=== PATIENT | male | born 1965 | race Caucasian/White ===

== ENCOUNTER 2018-03-29 08:52 | Emergency (ER) | payer OTHER ==
[~2018-03-29] VITALS: Ht 182.9 cm; Wt 106.2 kg
[~2018-03-29 08:52] MED LIST: HYDR-3533 PO
[2018-03-29 08:54] VITALS: BP 140/79; PULSE 71; RESP 18; TEMP 98.6; O2SAT 98
[2018-03-29 09:12] VITALS: O2SAT 98
[2018-03-29 09:30] LABS: AUTOMATED NEUTROPHIL # 4.2 TH/MM3 (1.8-7.7); BASOPHIL # 0.1 TH/MM3 (0-0.2); EOSINOPHIL # 0.3 TH/MM3 (0-0.4); EOSINOPHIL % 4.7 % (0.0-4.0); HEMATOCRIT 43.7 % (39.0-51.0); HEMOGLOBIN 14.6 GM/DL (13.0-17.0); LYMPH % 30.7 % (9.0-44.0); LYMPHOCYTE # 2.2 TH/MM3 (1.0-4.8); MEAN CELL VOLUME 80.2 FL (80.0-100.0); MEAN CORPUSCULAR HEMOGLOBIN 26.9 PG (27.0-34.0); MEAN CORPUSCULAR HGB CONC 33.5 % (32.0-36.0); MEAN PLATELET VOLUME 7.7 FL (7.0-11.0); MONO % 5.8 % (0.0-8.0); MONOCYTE # 0.4 TH/MM3 (0-0.9); NEUT % 57.8 % (16.0-70.0); PLATELET COUNT 265 TH/MM3 (150-450); RED BLOOD COUNT 5.44 MIL/MM3 (4.50-5.90); RED CELL DISTRIBUTION WIDTH 13.4 % (11.6-17.2); WHITE BLOOD COUNT 7.2 TH/MM3 (4.0-11.0)
[2018-03-29] MEDS ORDERED: SODIUM CHLORIDE 0.9% FLUSH 10 ML FLUSH IV FLUSH PRN (09:30)
[2018-03-29] MEDS ORDERED: SODIUM CHLORID 0.9% 500 ML INJ 500 ML IV ONE (09:30)
[2018-03-29 09:56] LABS: CALCIUM 8.9 MG/DL (8.5-10.1)
[2018-03-29 09:57] LABS: ALBUMIN 3.5 GM/DL (3.4-5.0); BICARBONATE 28.7 MEQ/L (21.0-32.0); BLOOD UREA NITROGEN 21 MG/DL (7-18); GLUCOSE,RANDOM 107 MG/DL (74-106)
[2018-03-29 10:00] LABS: ALT (GPT) 20 U/L (12-78); GLOMERULAR FILTRATION RATE 63 ML/MIN (>89)
[2018-03-29 10:01] LABS: AST (GOT) 9 U/L (15-37); TOTAL PROTEIN 7.5 GM/DL (6.4-8.2)
[2018-03-29 10:02] LABS: PROTHROMBIN TIME - PATIENT 10.3 SEC (9.8-11.6)
[2018-03-29 10:03] LABS: ALKALINE PHOSPHATASE 65 U/L (45-117); CHLORIDE 107 MEQ/L (98-107); SODIUM (NA) 141 MEQ/L (136-145)
[2018-03-29 10:09] LABS: TOTAL BILIRUBIN ADULT 0.4 MG/DL (0.2-1.0)
--- NOTE | 2018-03-29 10:27 | PD ---
HPI Chief Complaint: GI Complaint Time Seen by Provider: 09:21 Travel History International Travel<30 days: No Contact w/Intl Traveler<30days: No Traveled to known affect area: No History of Present Illness HPI Patient is a 52-year-old male who comes in complaining of abdominal pain. He says this started yesterday. He says the pain is in his bellybutton. He says it was so bad yesterday that he was unable to even touch his stomach. He did not take anything for pain. He says it has improved, but his bellybutton is still hurting him. He denies nausea or vomiting. Denies fever or chills. He is having normal bowel movements. Severity is mild to moderate. PFSH Past Medical History Medical History: Denies Significant Hx Diminished Hearing: No Immunizations Current: Yes Tetanus Vaccination: > 5 Years Influenza Vaccination: No Social History Alcohol Use: Yes (WEEKENDS) Tobacco Use: No Substance Use: Yes (MARIJUANA OCCAS) Allergies-Medications (Allergen,Severity, Reaction): Coded Allergies: amoxicillin (Unverified Allergy, Intermediate, Rash, 03/29/18) Reported Meds & Prescriptions Reported Meds & Active Scripts Active No Active Prescriptions or Reported Medications Review of Systems Except as stated in HPI: all other systems reviewed are Neg General / Constitutional: No: Fever, Chills Eyes: No: Blurred Vision HENT: No: Headaches, Lightheadedness Cardiovascular: No: Chest Pain or Discomfort Respiratory: No: Shortness of Breath Gastrointestinal: Positive: Abdominal Pain, No: Nausea, Vomiting Musculoskeletal: No: Myalgias, Edema Skin: No Rash, No Change in Pigmentation Neurologic: No: Weakness, Dizziness Physical Exam Narrative GENERAL: Awake and alert, no acute distress. SKIN: Focused skin assessment warm/dry. No wounds or signs of infection. HEAD: Atraumatic. Normocephalic. EYES: Pupils equal and round. No scleral icterus. ENT: Mucous membranes pink and moist. NECK: Trachea midline. No JVD. CARDIOVASCULAR: Regular rate and rhythm. No murmur appreciated. RESPIRATORY: No accessory muscle use. Clear to auscultation. Breath sounds equal bilaterally. GASTROINTESTINAL: Abdomen soft, nondistended. Umbilical hernia, reducible. Tender to palpation of the hernia. MUSCULOSKELETAL: No obvious deformities. No clubbing. No cyanosis. No edema. NEUROLOGICAL: Awake and alert. No obvious cranial nerve deficits. Motor grossly within normal limits. Normal speech. PSYCHIATRIC: Appropriate mood and affect; insight and judgment normal. Data Data Last Documented VS Vital Signs Date Time Temp Pulse Resp B/P (MAP) Pulse Ox O2 Delivery O2 Flow Rate FiO2 03/29/18 11:06 66 18 154/85 (108) 98 Room Air 03/29/18 08:54 98.6 Orders Orders Complete Blood Count With Diff (03/29/18 08:59) Comprehensive Metabolic Panel (03/29/18 08:59) Urinalysis - C+S If Indicated (03/29/18 08:59) Iv Access Insert/Monitor (03/29/18 08:59) Oxygen Administration (03/29/18 08:59) Oximetry (03/29/18 08:59) Lipase (03/29/18 08:59) Lactic Acid (03/29/18 09:30) Prothrombin Time / Inr (Pt) (03/29/18 09:30) Act Partial Throm Time (Ptt) (03/29/18 09:30) Ct Abd/Pel W Iv Contrast(Rout) (03/29/18 09:30) Ecg Monitoring (03/29/18 09:30) Sodium Chloride 0.9% Flush (Ns Flush) (03/29/18 09:30) Sodium Chlorid 0.9% 500 Ml Inj (Ns 500 M (03/29/18 09:30) Iohexol 350 Inj (Omnipaque 350 Inj) (03/29/18 11:05) Labs Laboratory Tests Test 03/29/18 09:24 03/29/18 09:42 03/29/18 10:45 White Blood Count 7.2 TH/MM3 Red Blood Count 5.44 MIL/MM3 Hemoglobin 14.6 GM/DL Hematocrit 43.7 % Mean Corpuscular Volume 80.2 FL Mean Corpuscular Hemoglobin 26.9 PG Mean Corpuscular Hemoglobin Concent 33.5 % Red Cell Distribution Width 13.4 % Platelet Count 265 TH/MM3 Mean Platelet Volume 7.7 FL Neutrophils (%) (Auto) 57.8 % Lymphocytes (%) (Auto) 30.7 % Monocytes (%) (Auto) 5.8 % Eosinophils (%) (Auto) 4.7 % Basophils (%) (Auto) 1.0 % Neutrophils # (Auto) 4.2 TH/MM3 Lymphocytes # (Auto) 2.2 TH/MM3 Monocytes # (Auto) 0.4 TH/MM3 Eosinophils # (Auto) 0.3 TH/MM3 Basophils # (Auto) 0.1 TH/MM3 CBC Comment DIFF FINAL Differential Comment Blood Urea Nitrogen 21 MG/DL Creatinine 1.20 MG/DL Random Glucose 107 MG/DL Total Protein 7.5 GM/DL Albumin 3.5 GM/DL Calcium Level 8.9 MG/DL Alkaline Phosphatase 65 U/L Aspartate Amino Transf (AST/SGOT) 9 U/L Alanine Aminotransferase (ALT/SGPT) 20 U/L Total Bilirubin 0.4 MG/DL Sodium Level 141 MEQ/L Potassium Level 4.2 MEQ/L Chloride Level 107 MEQ/L Carbon Dioxide Level 28.7 MEQ/L Anion Gap 5 MEQ/L Estimat Glomerular Filtration Rate 63 ML/MIN Lipase 185 U/L Prothrombin Time 10.3 SEC Prothromb Time International Ratio 1.0 RATIO Activated Partial Thromboplast Time 27.5 SEC Lactic Acid Level 1.0 mmol/L Urine Collection Type CLEAN CATCH Urine Color YELLOW Urine Turbidity CLEAR Urine pH 7.0 Urine Specific [place] 1.015 Urine Protein NEG mg/dL Urine Glucose (UA) NEG mg/dL Urine Ketones NEG mg/dL Urine Occult Blood TRACE Urine Nitrite NEG Urine Bilirubin NEG Urine Urobilinogen 0.2 MG/DL Urine Leukocyte Esterase NEG Urine RBC 0-3 /hpf Urine Squamous Epithelial Cells 0-5 /hpf Microscopic Urinalysis Comment CULT NOT INDICATED Urine Collection Time 1045 MDM Medical Decision Making Medical Screen Exam Complete: Yes Emergency Medical Condition: Yes Medical Record Reviewed: Yes Differential Diagnosis Incarcerated hernia versus strangulated hernia versus abdominal pain Narrative Course Patient is a 52-year-old male comes in complaining of pain to his umbilicus. Exam shows a reducible umbilical hernia. IV established, labs sent. Labs show no acute abnormalities. CT abdomen and pelvis performed shows a fat-containing umbilical hernia. There is also a mass on the adrenal gland. Patient informed of these results. Advised he needs to have a CAT scan done as an outpatient to classify the mass on his adrenal gland. Last 24 hours Impressions Abdomen/Pelvis CT 03/29/18 3230 Signed Impressions: Service Date/Time: Thursday, March 29, 2018 10:54 - CONCLUSION: 1. There is a small fat containing umbilical hernia. 2. A 1.9 cm right adrenal gland mass is identified. It does not meet criteria for a benign adenoma on this examination. Suggest correlation with any prior imaging studies that could confirm stability or offer additional characterization. If none are available, suggest adrenal protocol CT with and without intravenous contrast for further evaluation. 3. Moderate atherosclerotic disease. Leodan Banda MD Advised follow-up with general surgery for repair of his umbilical hernia. Advised if the hernia is ever stuck he needs to come to the emergency department for management. Advised return anytime for any worsening symptoms. Diagnosis Primary Impression: Umbilical hernia Qualified Codes: K42.9 - Umbilical hernia without obstruction or gangrene Referrals: Zeus Doran MD call for appointment Patient Instructions: General Instructions, Umbilical Hernia (ED) Additional Instructions: There is a mass on your adrenal gland, you need to follow-up with a primary care doctor and have an adrenal CT performed. You have an umbilical hernia, this will need to be repaired by a general surgeon. Call and make an appointment with the general surgeon. Return anytime were unable to push the hernia back in, or for any worsening symptoms. Scripts No Active Prescriptions or Reported Meds Disposition: 01 DISCHARGE HOME Condition: Stable Magi Simmons MD March 29, 2018 10:27
[2018-03-29 10:55] LABS: BILIRUBIN, URINE NEG (NEG); BLOOD, URINE TRACE (NEG); GLUCOSE,URINE NEG (NEG); KETONE, URINE NEG (NEG); NITRITE,URINE NEG (NEG); URINE COLOR YELLOW (YELLW/STRAW); URINE LEUKOCYTE ESTERASE NEG (NEG)
[2018-03-29 11:01] LABS: RBC, URINE 0-3 /hpf (0-3); SQUAMOUS EPITHELIAL CELL URINE 0-5 /hpf (0-5)
[2018-03-29] MEDS ORDERED: IOHEXOL 350 MG/ML 10 ML VIAL (for RAD DIAG) IVCONTRAST ONE (11:05)
[2018-03-29 11:06] VITALS: BP 154/85; PULSE 66; RESP 18; O2SAT 98
--- NOTE | 2018-03-29 11:34 | RADRPT ---
EXAM DATE/TIME: 03/29/2018 10:54 [facility] COMPARISON: No previous studies available for comparison. INDICATIONS : Umbilical pain. IV CONTRAST: 95 cc Omnipaque 350 (iohexol) IV ORAL CONTRAST: No oral contrast ingested. RADIATION DOSE: 20.24 CTDIvol (mGy) MEDICAL HISTORY : None SURGICAL HISTORY : Orthopedic surgery. ENCOUNTER: Initial ACUITY: 2 days PAIN SCALE: 5/10 LOCATION: Umbilical TECHNIQUE: Volumetric scanning of the abdomen and pelvis was performed. Using automated exposure control and ad justment of the mA and/or kV according to patient size, radiation dose was kept as low as reasonably achievable to obtain optimal diagnostic quality images. DICOM format image data is available electro nically for review and comparison. FINDINGS: LOWER LUNGS: The visualized lower lungs are clear. LIVER: Homogeneous density weighted incidental 7 mm low density lesion in the right posterior liver that is too small to characterize. There is no dilation of the biliary tree. No calcified gallstones. SPLEEN: Normal size without lesion. PANCREAS: Within normal limits. KIDNEYS: Normal in size and shape. There is no mass, stone or hydronephrosis. ADRENAL GLANDS: There is a 1.9 cm right adrenal gland mass with Hounsfield measurements in the 30s. It contains no ma croscopic fat or calcification. Left adrenal gland is normal. VASCULAR: There is no aortic aneurysm. There is moderate atherosclerotic disease. BOWEL/MESENTERY: The stomach, small bowel, and colon demonstrate no acute abnormality. There is no free intraperitone al air or fluid. Appendix and terminal ileum are normal. There is mild sigmoid diverticulosis. ABDOMINAL WALL: There is a small fat containing umbilical hernia. RETROPERITONEUM: There is no lymphadenopathy. BLADDER: No wall thickening or mass. REPRODUCTIVE: Within normal limits. There is prostate calcification. INGUINAL: There is no lymphadenopathy or hernia. MUSCULOSKELETAL: There are mild degenerative changes of the lumbar spine with mild dextroscoliosis. CONCLUSION: 1. There is a small fat containing umbilical hernia. 2. A 1.9 cm right adrenal gland mass is identified. It does not meet criteria for a benign adenoma on this examination. Suggest correlation with any prior imaging studies that could confirm stability or offer additional characterization. If none are available, suggest adrenal protocol CT with and witho ut intravenous contrast for further evaluation. 3. Moderate atherosclerotic disease. Leodan Banda MD on March 29, 2018 at 11:28 Board Certified Radiologist. This report was verified electronically.
[2018-03-29 12:29] VITALS: BP 155/89
== END 2018-03-29 12:31 | disposition home or self-care (01) ==
LOC: PHED 08:52
DX: K42.9 Umbilical hernia without obstruction or gangrene (principal); R22.9 Localized swelling, mass and lump, unspecified; F12.10 Cannabis abuse, uncomplicated; Z88.0 Allergy status to penicillin
CPT/HCPCS: 74177; 80053; 81001; 83605; 83690; 85025; 85610; 85730; 96360; 99284; J7040; Q9967